=== PATIENT | male | born 1965 | race Two or more races ===

== ENCOUNTER 2019-09-18 21:30 | Emergency (ER) | payer SELFPAY ==
[~2019-09-18] VITALS: Ht 167.6 cm; Wt 77.3 kg
[2019-09-18 21:37] VITALS: Ht 167.6 cm; Wt 77.3 kg
[2019-09-18] MEDS ORDERED: GLUCOPHAGE1000 MG PO (21:40)
[2019-09-18] MEDS ORDERED: ALBUTEROL SULF8.5 GM INH (21:40)
[2019-09-18] MEDS ORDERED: DOXYCYCLINE HY100 M2 PO (22:55)
[2019-09-18 23:40] VITALS: BP 126/82
== END 2019-09-18 23:25 | disposition home or self-care (01) ==
LOC: D.ER 21:30
DX: J18.9 Pneumonia, unspecified organism (principal); E11.9 Type 2 diabetes mellitus without complications; Z79.84 Long term (current) use of oral hypoglycemic drugs